=== PATIENT | female | born 1980 | race Caucasian/White ===

== ENCOUNTER 2018-11-05 14:09 | Inpatient (IN) | payer OTHER, MEDICAID ==
[2018-11-05 14:44] LABS: WHITE BLOOD COUNT 6.5 10^3/ul (4.8-10.8)
[2018-11-05 14:44] LABS: ADD MAN DIFF? NO; BASOPHILS % 0.5 % (0.0-2.0); EOSINOPHILS # 0.1 10^3/ul (0.0-0.5); EOSINOPHILS % 0.9 % (0.0-7.0); HEMATOCRIT 43.8 % (37.0-47.0); HEMOGLOBIN 14.4 g/dl (12.0-16.0); LYMPHOCYTES # 2.4 10^3/ul (0.8-2.9); LYMPHOCYTES % 36.8 % (15.0-51.0); MEAN CORPUSCULAR HEMOGLOBIN 30.3 pg (29.0-33.0); MEAN CORPUSCULAR HGB CONC 32.9 g/dl (32.0-37.0); MEAN PLATELET VOLUME 9.1 fl (7.4-10.4); MONOCYTE # 0.3 10^3/ul (0.3-0.9); MONOCYTES % 5.1 % (0.0-11.0); NEUTROPHIL # 3.7 10^3/ul (1.6-7.5); NEUTROPHILS % 56.5 % (39.0-77.0); PLATELET COUNT 285 10^3/UL (140-415); RED BLOOD COUNT 4.76 10^6/ul (4.20-5.40)
[2018-11-05 14:54] LABS: URINE BLOOD (Dip) POC Negative (NEGATIVE); URINE GLUCOSE (Dip) POC Negative (NEGATIVE); URINE KETONES (Dip) POC 1+ (NEGATIVE); URINE LEUKOCYTE EST (Dip) POC Trace (NEGATIVE); URINE NITRITE (Dip) POC Negative (NEGATIVE); URINE TOTAL PROTEIN POC Negative (NEGATIVE)
[2018-11-05 15:01] LABS: ANION GAP 9 (5-13); BLOOD UREA NITROGEN 16 mg/dl (7-20); CALCIUM 9.6 mg/dl (8.4-10.2); CARBON DIOXIDE 26 mmol/L (21-31); CHLORIDE 107 mmol/L (97-110); CREATININE 0.61 mg/dl (0.44-1.00); Estimated GFR > 60 mL/min (>60); GLUCOSE 90 mg/dl (70-220); POTASSIUM 4.3 mmol/L (3.5-5.1); SODIUM 142 mmol/L (135-144)
[2018-11-05] MEDS: KETOROLAC 15 MG INJ IV (19:26)
[2018-11-05] MEDS: SOD CHLORIDE 0.9% 100 ML (22:57)
[2018-11-05] MEDS: IOHEXOL 100 ML (22:57)
[2018-11-05] MEDS: GABAPENTIN 300 MG CAP PO (23:00)
[2018-11-05] MEDS ORDERED: ONDANSETRON 4 MG INJ IV (23:00)
[2018-11-06] MEDS: D5W-0.45 NACL + KCL 20 MEQ 1,000 ML IV ×5 (01:57→22:45)
[2018-11-06] MEDS: morphine 4 MG/ML VIAL IV ×4 (01:57→18:03)
[2018-11-06] MEDS: GABAPENTIN 300 MG CAP PO ×3 (06:07→22:50)
[2018-11-06] MEDS: ACETAMINOPHEN 325 MG TAB PO ×2 (08:24→16:59)
[2018-11-06 11:45] LABS: INR 1.06; PROTIME 13.9 Sec (11.9-14.9); PT RATIO 1.1
[2018-11-06 11:46] LABS: PARTIAL THROMBOPLASTIN TIME 32.6 Sec (23.0-35.0)
[2018-11-06 12:18] LABS: COLLAGEN/ADP 146 Secs. (40-147); COLLAGEN/EPI 232 Secs. (51-198)
[2018-11-06] MEDS ORDERED: VANCOMYCIN IV PER PHARMACY XX (12:30)
[2018-11-06] MEDS: VANCOMYCIN 1 GM 250 ML IVPB (13:31)
[2018-11-06] MEDS ORDERED: THROMBIN 5000 UNIT (RECOTHROM) VIAL (19:40)
[2018-11-06] MEDS ORDERED: GELATIN SIZE 100 SPONGE (19:40)
[2018-11-06] MEDS ORDERED: LIDOCAINE 0.5% (SDV) 50 ML INJ (19:40)
[2018-11-06] MEDS ORDERED: SEVOFLURANE 15 MIN (20:00)
[2018-11-06] MEDS ORDERED: FENTAnyl 50 MCG/ML VIAL (20:13)
[2018-11-06] MEDS ORDERED: PROPOFOL 20 ML (20:13)
[2018-11-06] MEDS ORDERED: ROCURONIUM 50 MG INJ (20:13)
[2018-11-06] MEDS ORDERED: MIDAZOLAM 1 MG/ML 2 ML INJ (20:13)
[2018-11-06] MEDS ORDERED: FENTAnyl 50 MCG/ML VIAL IV ×2 (20:30)
[2018-11-06] MEDS ORDERED: EPHEDrine 25 MG/5 ML SYG IV (20:30)
[2018-11-06] MEDS ORDERED: hydrALAzine 20 MG INJ IV (20:30)
[2018-11-06] MEDS ORDERED: HYDROmorphONE 0.5 MG/0.5 ML SYG IV (20:30)
[2018-11-06] MEDS ORDERED: ONDANSETRON 4 MG INJ IV (20:30)
[2018-11-06] MEDS ORDERED: DIPHENHYDRAMINE 50 MG INJ IV (20:30)
[2018-11-06] MEDS ORDERED: LABETALOL HCL 20MG INJ IV (20:30)
[2018-11-06] MEDS ORDERED: MEPERIDINE 25 MG INJ IV (20:30)
[2018-11-06] MEDS ORDERED: METOCLOPRAMIDE 10 MG INJ (20:33)
[2018-11-06] MEDS ORDERED: DEXAMETHASONE 4 MG/ML 5 ML INJ (20:33)
[2018-11-06] MEDS ORDERED: PHENYLephrine (100 MCG/ML) 10ML SYG (20:33)
[2018-11-06] MEDS ORDERED: ONDANSETRON 4 MG INJ (20:33)
[2018-11-06] MEDS ORDERED: SUGAMMADEX SODIUM 200 MG/2 ML VIAL IV (21:21)
[2018-11-06] MEDS: VANCOMYCIN 750 MG (PMX) 250 ML IVPB (22:28)
[2018-11-06] MEDS: NORTRIPTYLINE 25 MG CAP PO (22:35)
[2018-11-06] MEDS: HYDROmorphONE 0.5 MG/0.5 ML SYG IV (22:44)
[2018-11-07] MEDS: D5W-0.45 NACL + KCL 20 MEQ 1,000 ML IV (03:08)
[2018-11-07] MEDS: morphine 4 MG/ML VIAL IV ×4 (03:38→20:02)
[2018-11-07 05:23] LABS: ADD MAN DIFF? NO
[2018-11-07 05:25] LABS: ABNORMAL IP MESSAGE 1; HEMATOCRIT 39.5 % (37.0-47.0); HEMOGLOBIN 12.8 g/dl (12.0-16.0); LYMPHOCYTES # 0.5 10^3/ul (0.8-2.9); LYMPHOCYTES % 7.2 % (15.0-51.0); MEAN CORPUSCULAR HEMOGLOBIN 29.9 pg (29.0-33.0); MEAN CORPUSCULAR HGB CONC 32.4 g/dl (32.0-37.0); MEAN CORPUSCULAR VOLUME 92.3 fl (82.0-101.0); MEAN PLATELET VOLUME 9.2 fl (7.4-10.4); MONOCYTES % 0.6 % (0.0-11.0); NEUTROPHILS % 91.9 % (39.0-77.0); PLATELET COUNT 256 10^3/UL (140-415); RED BLOOD COUNT 4.28 10^6/ul (4.20-5.40); RED CELL DISTRIBUTION WIDTH 12.6 % (11.5-14.5)
[2018-11-07 05:25] LABS: WHITE BLOOD COUNT 6.5 10^3/ul (4.8-10.8)
[2018-11-07 05:33] LABS: POSITIVE DIFF @See below
[2018-11-07 05:48] LABS: ANION GAP 8 (5-13); BLOOD UREA NITROGEN 8 mg/dl (7-20); CALCIUM 8.7 mg/dl (8.4-10.2); CARBON DIOXIDE 23 mmol/L (21-31); CHLORIDE 111 mmol/L (97-110); CREATININE 0.44 mg/dl (0.44-1.00); Estimated GFR > 60 mL/min (>60); GLUCOSE 198 mg/dl (70-220); POTASSIUM 4.2 mmol/L (3.5-5.1); SODIUM 142 mmol/L (135-144)
[2018-11-07] MEDS: PANTOPRAZOLE (EC) 40 MG TAB PO (06:01)
[2018-11-07] MEDS: VANCOMYCIN 750 MG (PMX) 250 ML IVPB ×3 (06:01→21:47)
[2018-11-07] MEDS: GABAPENTIN 300 MG CAP PO ×3 (06:02→22:39)
[2018-11-07] MEDS: CEFTRIAXONE 1 GM/50 ML (PMX) 50 ML IVPB (13:22)
[2018-11-07] MEDS: NORTRIPTYLINE 25 MG CAP PO (20:31)
[2018-11-07 21:35] LABS: VANCOMYCIN,TROUGH 11.4 ug/ml (10.0-20.0)
[2018-11-08] MEDS: ACETAMINOPHEN 325 MG TAB PO ×2 (00:53→12:33)
[2018-11-08 05:10] LABS: ADD MAN DIFF? NO
[2018-11-08 05:20] LABS: BASOPHILS % 0.2 % (0.0-2.0); EOSINOPHILS % 0.3 % (0.0-7.0); HEMATOCRIT 33.7 % (37.0-47.0); HEMOGLOBIN 11.1 g/dl (12.0-16.0); LYMPHOCYTES # 2.5 10^3/ul (0.8-2.9); LYMPHOCYTES % 29.3 % (15.0-51.0); MEAN CORPUSCULAR HGB CONC 32.9 g/dl (32.0-37.0); MEAN CORPUSCULAR VOLUME 91.1 fl (82.0-101.0); MEAN PLATELET VOLUME 9.5 fl (7.4-10.4); MONOCYTE # 0.6 10^3/ul (0.3-0.9); MONOCYTES % 6.4 % (0.0-11.0); NEUTROPHIL # 5.5 10^3/ul (1.6-7.5); NEUTROPHILS % 63.5 % (39.0-77.0); PLATELET COUNT 249 10^3/UL (140-415); RED CELL DISTRIBUTION WIDTH 12.8 % (11.5-14.5)
[2018-11-08 05:20] LABS: WHITE BLOOD COUNT 8.6 10^3/ul (4.8-10.8)
[2018-11-08 05:33] LABS: ANION GAP 4 (5-13); BLOOD UREA NITROGEN 13 mg/dl (7-20); CALCIUM 8.5 mg/dl (8.4-10.2); CARBON DIOXIDE 25 mmol/L (21-31); CHLORIDE 112 mmol/L (97-110); CREATININE 0.56 mg/dl (0.44-1.00); Estimated GFR > 60 mL/min (>60); GLUCOSE 113 mg/dl (70-220); POTASSIUM 3.7 mmol/L (3.5-5.1); SODIUM 141 mmol/L (135-144)
[2018-11-08] MEDS: GABAPENTIN 300 MG CAP PO ×3 (06:09→22:26)
[2018-11-08] MEDS: PANTOPRAZOLE (EC) 40 MG TAB PO (06:10)
[2018-11-08] MEDS: VANCOMYCIN 1 GM 250 ML IVPB (06:13)
[2018-11-08] MEDS: CEFTRIAXONE 1 GM/50 ML (PMX) 50 ML IVPB (12:33)
[2018-11-08] MEDS: SOD CHLORIDE 0.9% 500 ML IV (19:37)
[2018-11-08] MEDS: NORTRIPTYLINE 25 MG CAP PO (20:17)
[2018-11-08] MEDS: DEXTROSE 5%-0.45% NACL 1,000 ML IV (22:33)
[2018-11-09 05:23] LABS: ADD MAN DIFF? NO
[2018-11-09 05:35] LABS: BASOPHILS % 0.4 % (0.0-2.0); EOSINOPHILS # 0.2 10^3/ul (0.0-0.5); HEMATOCRIT 34.7 % (37.0-47.0); HEMOGLOBIN 11.3 g/dl (12.0-16.0); LYMPHOCYTES # 2.6 10^3/ul (0.8-2.9); LYMPHOCYTES % 35.6 % (15.0-51.0); MEAN CORPUSCULAR HEMOGLOBIN 30.2 pg (29.0-33.0); MEAN CORPUSCULAR HGB CONC 32.6 g/dl (32.0-37.0); MEAN CORPUSCULAR VOLUME 92.8 fl (82.0-101.0); MEAN PLATELET VOLUME 10.1 fl (7.4-10.4); MONOCYTE # 0.5 10^3/ul (0.3-0.9); MONOCYTES % 6.2 % (0.0-11.0); NEUTROPHIL # 4.1 10^3/ul (1.6-7.5); NEUTROPHILS % 55.7 % (39.0-77.0); PLATELET COUNT 208 10^3/UL (140-415); RED BLOOD COUNT 3.74 10^6/ul (4.20-5.40)
[2018-11-09 05:35] LABS: WHITE BLOOD COUNT 7.4 10^3/ul (4.8-10.8)
[2018-11-09] MEDS: PANTOPRAZOLE (EC) 40 MG TAB PO (05:40)
[2018-11-09 05:53] LABS: INR 0.93; PARTIAL THROMBOPLASTIN TIME 26.5 Sec (23.0-35.0); PROTIME 12.6 Sec (11.9-14.9)
[2018-11-09] MEDS: GABAPENTIN 300 MG CAP PO ×3 (06:05→22:41)
[2018-11-09 06:08] LABS: ANION GAP 7 (5-13); BLOOD UREA NITROGEN 9 mg/dl (7-20); CALCIUM 8.4 mg/dl (8.4-10.2); CARBON DIOXIDE 22 mmol/L (21-31); CHLORIDE 110 mmol/L (97-110); CREATININE 0.44 mg/dl (0.44-1.00); Estimated GFR > 60 mL/min (>60); GLUCOSE 103 mg/dl (70-220); POTASSIUM 3.7 mmol/L (3.5-5.1); SODIUM 139 mmol/L (135-144)
[2018-11-09] MEDS: DEXTROSE 5%-0.45% NACL 1,000 ML IV ×3 (07:58→22:47)
[2018-11-09] MEDS ORDERED: ROCURONIUM 50 MG INJ ×2 (09:54)
[2018-11-09] MEDS ORDERED: GLYCOPYRROLATE 0.4 MG INJ ×2 (09:54→13:11)
[2018-11-09] MEDS ORDERED: PROPOFOL 20 ML (09:54)
[2018-11-09] MEDS ORDERED: SUCCINYLCHOLINE CHLORIDE 100 MG/5 ML SYG IV (09:54)
[2018-11-09] MEDS ORDERED: LIDOCAINE 2% (SDV) 5 ML INJ (09:54)
[2018-11-09] MEDS ORDERED: NEOSTIGMINE 3 MG/3 ML SYRINGE (09:54)
[2018-11-09] MEDS ORDERED: MEPERIDINE 100 MG INJ (10:29)
[2018-11-09] MEDS ORDERED: CEFAZOLIN 1 GM INJ (10:51)
[2018-11-09] MEDS ORDERED: POVIDONE IODINE 10% 28.4 GM OINT (11:03)
[2018-11-09] MEDS ORDERED: THROMBIN 5000 UNIT (RECOTHROM) VIAL (11:03)
[2018-11-09] MEDS ORDERED: LIDOCAINE 0.5% (SDV) 50 ML INJ (11:03)
[2018-11-09] MEDS ORDERED: GELATIN SIZE 100 SPONGE (11:03)
[2018-11-09] MEDS: LIDOCAINE 1%/EPI 30 ML INJ (11:58)
[2018-11-09] MEDS ORDERED: METOCLOPRAMIDE 10 MG INJ (13:12)
[2018-11-09] MEDS ORDERED: ONDANSETRON 4 MG INJ (13:12)
[2018-11-09] MEDS ORDERED: PHENYLephrine (100 MCG/ML) 10ML SYG (13:14)
[2018-11-09 13:25] LABS: CSF RBC 1000 /uL (0-0)
[2018-11-09] MEDS ORDERED: FENTAnyl 50 MCG/ML VIAL IV ×3 (13:30)
[2018-11-09] MEDS ORDERED: HYDROmorphONE 0.5 MG/0.5 ML SYG IV ×3 (13:30)
[2018-11-09] MEDS ORDERED: METOCLOPRAMIDE 10 MG INJ IV (13:30)
[2018-11-09] MEDS ORDERED: ONDANSETRON 4 MG INJ IV (13:30)
[2018-11-09 13:34] LABS: GLUCOSE,CSF 54 mg/dl (50-80)
[2018-11-09 13:35] LABS: TOTAL PROTEIN,CSF < 10 mg/dl (12-60)
[2018-11-09] MEDS: BACITRACIN/POLYMYXIN 28.35 GM OINT TOP (13:37)
[2018-11-09 13:49] LABS: CSF COLOR SLIGHT XANTHOCHROMIC
[2018-11-09 13:49] LABS: CSF CLARITY HAZY; CSF WBC 12 /cmm (0-10); CSF#TUBE COUNT TUBE#1; CSF#TUBES REC'D 1
[2018-11-09] MEDS: CEFTRIAXONE 1 GM/50 ML (PMX) 50 ML IVPB (14:40)
[2018-11-09] MEDS: morphine 4 MG/ML VIAL IV ×2 (15:16→22:53)
[2018-11-09] MEDS: ACETAMINOPHEN 1000MG/100ML IV 100 ML IVPB ×2 (17:09→22:44)
[2018-11-09] MEDS: NORTRIPTYLINE 25 MG CAP PO (21:11)
[2018-11-10 05:16] LABS: ADD MAN DIFF? NO
[2018-11-10 05:27] LABS: BASOPHILS % 0.4 % (0.0-2.0); EOSINOPHILS # 0.3 10^3/ul (0.0-0.5); EOSINOPHILS % 3.5 % (0.0-7.0); HEMATOCRIT 32.6 % (37.0-47.0); HEMOGLOBIN 10.7 g/dl (12.0-16.0); LYMPHOCYTES # 2.5 10^3/ul (0.8-2.9); LYMPHOCYTES % 31.4 % (15.0-51.0); MEAN CORPUSCULAR HEMOGLOBIN 29.9 pg (29.0-33.0); MEAN CORPUSCULAR HGB CONC 32.8 g/dl (32.0-37.0); MEAN CORPUSCULAR VOLUME 91.1 fl (82.0-101.0); MEAN PLATELET VOLUME 9.7 fl (7.4-10.4); MONOCYTE # 0.5 10^3/ul (0.3-0.9); MONOCYTES % 6.5 % (0.0-11.0); NEUTROPHIL # 4.6 10^3/ul (1.6-7.5); NEUTROPHILS % 57.9 % (39.0-77.0); PLATELET COUNT 227 10^3/UL (140-415); RED BLOOD COUNT 3.58 10^6/ul (4.20-5.40)
[2018-11-10] MEDS: GABAPENTIN 300 MG CAP PO ×3 (06:29→22:56)
[2018-11-10] MEDS: PANTOPRAZOLE (EC) 40 MG TAB PO (06:29)
[2018-11-10] MEDS: morphine 4 MG/ML VIAL IV (06:54)
[2018-11-10] MEDS: ACETAMINOPHEN 1000MG/100ML IV 100 ML IVPB (11:41)
[2018-11-10] MEDS: CEFTRIAXONE 1 GM/50 ML (PMX) 50 ML IVPB (12:39)
[2018-11-10] MEDS ORDERED: LACTULOSE 30ML CUP PO (13:00)
[2018-11-10] MEDS: LACTULOSE 30ML CUP GTB (14:03)
[2018-11-10] MEDS: BISACODYL 10 MG SUPP PR (16:15)
[2018-11-10] MEDS: NORTRIPTYLINE 25 MG CAP PO (22:01)
[2018-11-11] MEDS: HYDROCODONE/APAP (7.5/325) TAB PO ×2 (00:14→07:38)
[2018-11-11] MEDS: GABAPENTIN 300 MG CAP PO ×3 (06:35→22:42)
[2018-11-11] MEDS: PANTOPRAZOLE (EC) 40 MG TAB PO (06:35)
[2018-11-11] MEDS: CEFTRIAXONE 1 GM/50 ML (PMX) 50 ML IVPB (15:07)
[2018-11-11] MEDS: DICLOFENAC SODIUM 1% GEL 100 GM TUBE TP ×2 (17:57→20:46)
[2018-11-11] MEDS: NORTRIPTYLINE 25 MG CAP PO (20:46)
[2018-11-12] MEDS: HYDROCODONE/APAP (7.5/325) TAB PO ×2 (00:40→17:31)
[2018-11-12 05:44] LABS: ADD MAN DIFF? NO
[2018-11-12 05:50] LABS: BASOPHILS % 0.3 % (0.0-2.0); EOSINOPHILS # 0.2 10^3/ul (0.0-0.5); EOSINOPHILS % 2.4 % (0.0-7.0); HEMOGLOBIN 11.5 g/dl (12.0-16.0); LYMPHOCYTES # 1.5 10^3/ul (0.8-2.9); LYMPHOCYTES % 23.3 % (15.0-51.0); MEAN CORPUSCULAR HEMOGLOBIN 29.6 pg (29.0-33.0); MEAN CORPUSCULAR HGB CONC 31.9 g/dl (32.0-37.0); MEAN CORPUSCULAR VOLUME 92.8 fl (82.0-101.0); MEAN PLATELET VOLUME 9.6 fl (7.4-10.4); MONOCYTE # 0.5 10^3/ul (0.3-0.9); MONOCYTES % 7.4 % (0.0-11.0); NEUTROPHIL # 4.2 10^3/ul (1.6-7.5); NEUTROPHILS % 66.4 % (39.0-77.0); PLATELET COUNT 273 10^3/UL (140-415); RED BLOOD COUNT 3.88 10^6/ul (4.20-5.40); RED CELL DISTRIBUTION WIDTH 13.2 % (11.5-14.5)
[2018-11-12 05:50] LABS: WHITE BLOOD COUNT 6.3 10^3/ul (4.8-10.8)
[2018-11-12 06:14] LABS: ALANINE AMINOTRANSFERASE 66 IU/L (13-69); ALBUMIN 3.4 g/dl (3.3-4.9); ALBUMIN/GLOBULIN RATIO 1.17; ALKALINE PHOSPHATASE 89 IU/L (42-121); ANION GAP 7 (5-13); ASPARTATE AMINO TRANSFERASE 42 IU/L (15-46); BILIRUBIN,INDIRECT 0.3 mg/dl (0-1.1); BILIRUBIN,TOTAL 0.3 mg/dl (0.2-1.3); BLOOD UREA NITROGEN 10 mg/dl (7-20); CALCIUM 8.7 mg/dl (8.4-10.2); CARBON DIOXIDE 27 mmol/L (21-31); CHLORIDE 107 mmol/L (97-110); CREATININE 0.51 mg/dl (0.44-1.00); Estimated GFR > 60 mL/min (>60); GLUCOSE 102 mg/dl (70-220); POTASSIUM 4.3 mmol/L (3.5-5.1); SODIUM 141 mmol/L (135-144); TOTAL PROTEIN 6.3 g/dl (6.1-8.1)
[2018-11-12] MEDS: GABAPENTIN 300 MG CAP PO ×3 (06:15→22:14)
[2018-11-12] MEDS: PANTOPRAZOLE (EC) 40 MG TAB PO (06:16)
[2018-11-12] MEDS: DICLOFENAC SODIUM 1% GEL 100 GM TUBE TP (09:00)
[2018-11-12] MEDS: FUROSEMIDE 20 MG INJ IV ×2 (11:29→17:30)
[2018-11-12] MEDS ORDERED: BETAMETHASONE 0.05% 15 GM OINT TOP (11:30)
[2018-11-12] MEDS: BETAMETHASONE 0.05% 15 GM OINT TOP ×2 (12:00→21:17)
[2018-11-12 13:54] LABS: B-TYPE NATRIURETIC PEPTIDE 17 PG/ML (0-125)
[2018-11-12] MEDS ORDERED: CEPHALEXIN 500 MG CAP PO (14:00)
[2018-11-12] MEDS: CEPHALEXIN 250 MG CAP PO ×2 (14:41→21:15)
[2018-11-12] MEDS: morphine 4 MG/ML VIAL IV ×2 (15:36→21:18)
[2018-11-12 18:42] LABS: D-DIMER 1014.92 ng/ml (<460)
[2018-11-12] MEDS: NORTRIPTYLINE 25 MG CAP PO (21:14)
[2018-11-12] MEDS ORDERED: IOHEXOL 300MG/ML 150 ML BTL (22:36)
[2018-11-12] MEDS ORDERED: SOD CHLORIDE 0.9% 100 ML (22:36)
[2018-11-13] MEDS: CEPHALEXIN 250 MG CAP PO ×3 (05:30→19:47)
[2018-11-13] MEDS: PANTOPRAZOLE (EC) 40 MG TAB PO (05:30)
[2018-11-13] MEDS: FUROSEMIDE 20 MG INJ IV ×2 (05:41→17:37)
[2018-11-13 06:28] LABS: ADD MAN DIFF? NO
[2018-11-13 06:36] LABS: BASOPHILS % 0.6 % (0.0-2.0); EOSINOPHILS # 0.2 10^3/ul (0.0-0.5); EOSINOPHILS % 2.7 % (0.0-7.0); HEMATOCRIT 39.8 % (37.0-47.0); HEMOGLOBIN 12.6 g/dl (12.0-16.0); LYMPHOCYTES # 1.8 10^3/ul (0.8-2.9); LYMPHOCYTES % 26.6 % (15.0-51.0); MEAN CORPUSCULAR HEMOGLOBIN 29.6 pg (29.0-33.0); MEAN CORPUSCULAR HGB CONC 31.7 g/dl (32.0-37.0); MEAN CORPUSCULAR VOLUME 93.4 fl (82.0-101.0); MEAN PLATELET VOLUME 9.3 fl (7.4-10.4); MONOCYTE # 0.6 10^3/ul (0.3-0.9); MONOCYTES % 8.9 % (0.0-11.0); NEUTROPHIL # 4.2 10^3/ul (1.6-7.5); NEUTROPHILS % 60.8 % (39.0-77.0); PLATELET COUNT 297 10^3/UL (140-415); RED BLOOD COUNT 4.26 10^6/ul (4.20-5.40); RED CELL DISTRIBUTION WIDTH 13.4 % (11.5-14.5)
[2018-11-13 06:36] LABS: WHITE BLOOD COUNT 6.9 10^3/ul (4.8-10.8)
[2018-11-13 06:53] LABS: D-DIMER 778.74 ng/ml (<460); MAGNESIUM 2.1 mg/dl (1.7-2.5)
[2018-11-13 06:55] LABS: ANION GAP 11 (5-13); BLOOD UREA NITROGEN 12 mg/dl (7-20); CARBON DIOXIDE 28 mmol/L (21-31); CHLORIDE 102 mmol/L (97-110); Estimated GFR > 60 mL/min (>60); GLUCOSE 125 mg/dl (70-220); POTASSIUM 3.6 mmol/L (3.5-5.1); SODIUM 141 mmol/L (135-144)
[2018-11-13 07:35] LABS: ERYTHROCYTE SEDIMENTATION RATE 26 mm/Hr (0-20)
[2018-11-13] MEDS: GABAPENTIN 300 MG CAP PO ×3 (08:26→19:48)
[2018-11-13] MEDS: BETAMETHASONE 0.05% 15 GM OINT TOP (08:27)
[2018-11-13] MEDS: HYDROCODONE/APAP (7.5/325) TAB PO (08:30)
[2018-11-13] MEDS: ACETAMINOPHEN 325 MG TAB PO (10:41)
[2018-11-13] MEDS: NORTRIPTYLINE 25 MG CAP PO (19:48)
== END 2018-11-13 20:22 | disposition home or self-care (01) | DRG 26 ==
LOC: ICU 20:46 → 6WM 11-10 18:48 → E/R 14:09
PROC: 009600Z Drainage of Cerebral Ventricle with Drainage Device, Open Approach (ICD-10-PCS; principal; 2018-11-06 19:30)
PROC: 00W60JZ Revision of Synthetic Substitute in Cerebral Ventricle, Open Approach (ICD-10-PCS; 2018-11-06 20:10)
DX: T85.01XA Breakdown (mechanical) of ventricular intracranial (communicating) shunt, initial encounter (principal); Q05.4 Unspecified spina bifida with hydrocephalus; N39.0 Urinary tract infection, site not specified; N31.9 Neuromuscular dysfunction of bladder, unspecified; M79.7 Fibromyalgia; R00.0 Tachycardia, unspecified; B96.20 Unspecified Escherichia coli [E. coli] as the cause of diseases classified elsewhere; D64.9 Anemia, unspecified; L25.9 Unspecified contact dermatitis, unspecified cause; Z88.0 Allergy status to penicillin; Z99.3 Dependence on wheelchair; Z87.728 Personal history of other specified (corrected) congenital malformations of nervous system and sense organs; Y75.1 Therapeutic (nonsurgical) and rehabilitative neurological devices associated with adverse incidents
CPT/HCPCS: 36415; 70250; 70450; 70496; 70551; 71045; 71260; 74018; 80048; 80053; 80202; 81003; 81025; 82945; 83735; 83880; 84157; 84443; 85025; 85378; 85576; 85610; 85651; 85730; 87040-91; 87070; 87081; 87086; 88300; 89051; 93005; 93306; 93970; 96374; 99285-25

== ENCOUNTER 2018-12-30 16:50 | Inpatient (IN) | payer OTHER ==
[2018-12-30] MEDS: SOD CHLORIDE 0.9% 1,000 ML IV (17:33)
[2018-12-30 17:36] LABS: ADD MAN DIFF? NO
[2018-12-30] MEDS: ONDANSETRON 4 MG INJ IV (17:36)
[2018-12-30 17:38] LABS: BASOPHILS % 0.3 % (0.0-2.0); EOSINOPHILS # 0.1 10^3/ul (0.0-0.5); EOSINOPHILS % 0.9 % (0.0-7.0); HEMATOCRIT 38.7 % (37.0-47.0); HEMOGLOBIN 12.6 g/dl (12.0-16.0); LYMPHOCYTES # 2.5 10^3/ul (0.8-2.9); LYMPHOCYTES % 28.2 % (15.0-51.0); MEAN CORPUSCULAR HEMOGLOBIN 30.4 pg (29.0-33.0); MEAN CORPUSCULAR HGB CONC 32.6 g/dl (32.0-37.0); MEAN CORPUSCULAR VOLUME 93.3 fl (82.0-101.0); MEAN PLATELET VOLUME 9.3 fl (7.4-10.4); MONOCYTE # 0.4 10^3/ul (0.3-0.9); NEUTROPHIL # 5.7 10^3/ul (1.6-7.5); NEUTROPHILS % 65.4 % (39.0-77.0); PLATELET COUNT 278 10^3/UL (140-415); RED BLOOD COUNT 4.15 10^6/ul (4.20-5.40)
[2018-12-30 17:38] LABS: WHITE BLOOD COUNT 8.7 10^3/ul (4.8-10.8)
[2018-12-30] MEDS: KETOROLAC 15 MG INJ IV (17:38)
[2018-12-30 17:42] LABS: ADD UMIC YES; UR AMORPHOUS CRYSTAL FEW /HPF (NONE SEEN); UR ASCORBIC ACID 40 mg/dL (NEGATIVE); UR BILIRUBIN (Dip) NEGATIVE (NEGATIVE); UR BLOOD (Dip) NEGATIVE (NEGATIVE); UR CLARITY CLOUDY (CLEAR); UR COLOR YELLOW (YELLOW); UR GLUCOSE (Dip) NEGATIVE (NEGATIVE); UR KETONES (Dip) NEGATIVE (NEGATIVE); UR LEUKOCYTE ESTERASE (Dip) NEGATIVE Leu/ul (NEGATIVE); UR NITRITE (Dip) NEGATIVE (NEGATIVE); UR RBC 0 /HPF (0-5); UR SQUAMOUS EPITHELIAL CELL FEW /HPF (FEW); UR TOTAL PROTEIN (Dip) 1+ mg/dl (NEGATIVE); UR UROBILINOGEN (Dip) 1+ mg/dL (NEGATIVE); UR WBC 0 /HPF (0-5)
[2018-12-30 17:54] LABS: ALANINE AMINOTRANSFERASE 29 IU/L (13-69); ALBUMIN 3.7 g/dl (3.3-4.9); ALBUMIN/GLOBULIN RATIO 1.32; ALKALINE PHOSPHATASE 83 IU/L (42-121); ANION GAP 7 (5-13); ASPARTATE AMINO TRANSFERASE 23 IU/L (15-46); BILIRUBIN,INDIRECT 0.3 mg/dl (0-1.1); BILIRUBIN,TOTAL 0.3 mg/dl (0.2-1.3); BLOOD UREA NITROGEN 15 mg/dl (7-20); CARBON DIOXIDE 26 mmol/L (21-31); CHLORIDE 105 mmol/L (97-110); CREATININE 0.63 mg/dl (0.44-1.00); Estimated GFR > 60 mL/min (>60); GLUCOSE 83 mg/dl (70-220); LIPASE 56 U/L (23-300); POTASSIUM 3.5 mmol/L (3.5-5.1); SODIUM 138 mmol/L (135-144); TOTAL PROTEIN 6.5 g/dl (6.1-8.1)
[2018-12-30] MEDS: OXYCODONE/ACETAMINOPHEN (5/325) TAB PO (18:55)
[2018-12-30] MEDS: morphine 4 MG/ML VIAL IV (21:20)
[2018-12-30] MEDS ORDERED: ONDANSETRON 4 MG INJ IV (21:30)
[2018-12-30] MEDS: FAMOTIDINE 20 MG INJ IV (22:19)
[2018-12-30] MEDS: DEXTROSE 5%-0.45% NACL 1,000 ML IV (22:19)
[2018-12-30] MEDS: GABAPENTIN 300 MG CAP PO (23:25)
[2018-12-31] MEDS: GABAPENTIN 300 MG CAP PO ×3 (04:55→21:15)
[2018-12-31] MEDS: morphine 4 MG/ML VIAL IV ×3 (04:59→19:36)
[2018-12-31] MEDS: FAMOTIDINE 20 MG INJ IV ×2 (09:34→21:15)
[2018-12-31] MEDS: DEXTROSE 5%-0.45% NACL 1,000 ML IV ×2 (12:54→22:30)
[2018-12-31] MEDS: ZOLPIDEM 5 MG TAB PO (21:15)
[2018-12-31] MEDS: NORTRIPTYLINE 25 MG CAP PO (21:15)
[2019-01-01] MEDS: DEXTROSE 5%-0.45% NACL 1,000 ML IV ×2 (02:46→18:44)
[2019-01-01] MEDS: GABAPENTIN 300 MG CAP PO ×3 (05:34→20:30)
[2019-01-01] MEDS: morphine 4 MG/ML VIAL IV ×3 (07:40→22:10)
[2019-01-01] MEDS: FAMOTIDINE 20 MG INJ IV (08:18)
[2019-01-01] MEDS: PANTOPRAZOLE (EC) 40 MG TAB PO (18:43)
[2019-01-01] MEDS: NORTRIPTYLINE 25 MG CAP PO (20:26)
[2019-01-02] MEDS: PANTOPRAZOLE (EC) 40 MG TAB PO (05:27)
[2019-01-02] MEDS: GABAPENTIN 300 MG CAP PO ×2 (05:27→12:51)
[2019-01-02] MEDS: DEXTROSE 5%-0.45% NACL 1,000 ML IV (05:30)
[2019-01-02] MEDS: morphine 4 MG/ML VIAL IV (06:54)
[2019-01-02] MEDS: FENTAnyl 50 MCG/ML VIAL (07:49)
[2019-01-02] MEDS: PROPOFOL 20 ML (07:49)
== END 2019-01-02 14:45 | disposition home or self-care (01) | DRG 384 ==
LOC: MS1 21:29 → E/R 16:50
PROC: 0DB68ZX Excision of Stomach, Via Natural or Artificial Opening Endoscopic, Diagnostic (ICD-10-PCS; principal; 2019-01-01 16:26)
PROC: 0DB78ZX Excision of Stomach, Pylorus, Via Natural or Artificial Opening Endoscopic, Diagnostic (ICD-10-PCS; 2019-01-01 16:26)
DX: K25.9 Gastric ulcer, unspecified as acute or chronic, without hemorrhage or perforation (principal); Q05.4 Unspecified spina bifida with hydrocephalus; N31.9 Neuromuscular dysfunction of bladder, unspecified; F32.9 Major depressive disorder, single episode, unspecified; K20.9 Esophagitis, unspecified; K29.70 Gastritis, unspecified, without bleeding; K80.20 Calculus of gallbladder without cholecystitis without obstruction; Z87.891 Personal history of nicotine dependence; Z98.2 Presence of cerebrospinal fluid drainage device
CPT/HCPCS: 36415; 76705; 78226; 80053; 81001; 81025; 83690; 85025; 87086; 88305; 88312; 96361; 96374; 96375; 99285-25